=== PATIENT | female | born 1995 | race Caucasian/White ===

== ENCOUNTER 2017-03-30 13:28 | Emergency (ER) | payer SELFPAY ==
[~2017-03-30 13:28] MED LIST: PROT40TA PO; RISP1 PO; SERT100 PO
[2017-03-30 13:31] VITALS: BP 125/73; PULSE 66; RESP 20; TEMP 98.7; O2SAT 98
[2017-03-30] MEDS ORDERED: RISP1 PO (13:48)
[2017-03-30] MEDS ORDERED: XANA1TAB2 PO (13:48)
[2017-03-30] MEDS ORDERED: LURA20TA PO (13:48)
[2017-03-30] MEDS ORDERED: ZOLO100T PO (13:48)
[2017-03-30] MEDS ORDERED: LAMO25 PO (13:48)
--- NOTE | 2017-03-30 13:56 | PD ---
HPI Chief Complaint: Syncope/Near-Syncope Time Seen by Provider: 13:52 Travel History International Travel<30 days: No Contact w/Intl Traveler<30days: No Traveled to known affect area: No History of Present Illness HPI This 21-year-old female was at work today. She was working on a [employer] register. She started getting tunnel vision and hearing was muffled. She then woke up on the floor. She has had syncope in the past. She says she has had the symptoms in the past and always passed out. She does say that she has woken up on the floor home a couple of times. She is on multiple antipsychotics she is on Zoloft, Luvox, Risperdal, Xanax and what to do. She has been on the same medication for some time. She has had a 70 pound weight loss over the past year. He did not have any chest pain or palpitations. She says she feels well now. PFSH Past Medical History ADHD: No Bipolar Disorder: Yes Anxiety: Yes Depression: Yes Cancer: No Cardiovascular Problems: No Diabetes: No Endocrine: No Genitourinary: No Implanted Vascular Access Dvce: No Musculoskeletal: No Neurologic: No Psychiatric: Yes (BI POLAR, OCD, DEPRESSION) Reproductive: No Respiratory: No Migraines: No Seizures: No Thyroid Disease: No Tetanus Vaccination: Unknown Influenza Vaccination: No ?: Unknown LMP: NOW Past Surgical History Cardiac Surgery: No Social History Alcohol Use: No Tobacco Use: No Substance Use: No Allergies-Medications (Allergen,Severity, Reaction): Uncoded Allergies: POLLEN (Adverse Reaction, Severe, 10/16/13) Reported Meds & Prescriptions Reported Meds & Active Scripts Active Reported Lamictal (Lamotrigine) 25 Mg Tab 25 Mg PO DAILY Latuda (Lurasidone) 20 Mg Tab 10 Mg PO DAILY Xanax (Alprazolam) 1 Mg Tab 1 Mg PO Q6H PRN Risperdal (Risperidone) 1 Mg Tab 1 Mg PO DAILY Zoloft (Sertraline HCl) 100 Mg Tab 100 Mg PO DAILY Review of Systems General / Constitutional: No: Fever, Chills Eyes: No: Diploplia, Blurred Vision HENT: No: Headaches, Vertigo Cardiovascular: No: Chest Pain or Discomfort, Palpitations Respiratory: No: Cough, Shortness of Breath Gastrointestinal: No: Nausea, Vomiting Genitourinary: No: Frequency Musculoskeletal: No: Myalgias, Arthralgias Skin: No Rash Endocrine: No: Heat Intolerance, Cold Intolerance Hematologic/Lymphatic: No: Easy Bruising Physical Exam Narrative GENERAL: Well-developed female SKIN: Focused skin assessment warm/dry. HEAD: Atraumatic. Normocephalic. EYES: Pupils equal and round. No scleral icterus. No injection or drainage. ENT: No nasal bleeding or discharge. Mucous membranes pink and moist. NECK: Trachea midline. No JVD. CARDIOVASCULAR: Regular rate and rhythm. No murmur appreciated. RESPIRATORY: No accessory muscle use. Clear to auscultation. Breath sounds equal bilaterally. GASTROINTESTINAL: Abdomen soft, non-tender, nondistended. Hepatic and splenic margins not palpable. MUSCULOSKELETAL: No obvious deformities. No clubbing. No cyanosis. No edema. NEUROLOGICAL: Awake and alert. No obvious cranial nerve deficits. Motor grossly within normal limits. Normal speech. PSYCHIATRIC: Appropriate mood and affect; insight and judgment normal. Data Data Last Documented VS Vital Signs Date Time Temp Pulse Resp B/P (MAP) Pulse Ox O2 Delivery O2 Flow Rate FiO2 03/30/17 14:17 70 16 106/67 (80) 72 16 108/68 (81) 98 16 108/66 (80) 03/30/17 13:31 98.7 98 Orders Orders Electrocardiogram (03/30/17 13:52) Complete Blood Count With Diff (03/30/17 13:52) Basic Metabolic Panel (Bmp) (03/30/17 13:52) Orthostatic Vital Signs (03/30/17 13:52) Labs Laboratory Tests Test 03/30/17 14:20 03/30/17 15:05 Blood Urea Nitrogen 12 MG/DL Creatinine 0.74 MG/DL Random Glucose 86 MG/DL Calcium Level 9.0 MG/DL Sodium Level 138 MEQ/L Potassium Level 3.7 MEQ/L Chloride Level 108 MEQ/L Carbon Dioxide Level 19.9 MEQ/L Anion Gap 10 MEQ/L Estimat Glomerular Filtration Rate 99 ML/MIN White Blood Count 9.1 TH/MM3 Red Blood Count 4.74 MIL/MM3 Hemoglobin 13.2 GM/DL Hematocrit 39.5 % Mean Corpuscular Volume 83.4 FL Mean Corpuscular Hemoglobin 27.8 PG Mean Corpuscular Hemoglobin Concent 33.3 % Red Cell Distribution Width 12.4 % Platelet Count 145 TH/MM3 Mean Platelet Volume 10.3 FL Neutrophils (%) (Auto) 84.1 % Lymphocytes (%) (Auto) 9.1 % Monocytes (%) (Auto) 4.3 % Eosinophils (%) (Auto) 0.7 % Basophils (%) (Auto) 1.8 % Neutrophils # (Auto) 7.6 TH/MM3 Lymphocytes # (Auto) 0.8 TH/MM3 Monocytes # (Auto) 0.4 TH/MM3 Eosinophils # (Auto) 0.1 TH/MM3 Basophils # (Auto) 0.2 TH/MM3 CBC Comment DIFF FINAL Differential Comment MDM Medical Decision Making Medical Screen Exam Complete: Yes Emergency Medical Condition: Yes Medical Record Reviewed: Yes Differential Diagnosis Differential includes vasovagal syncope, adverse medication reaction Narrative Course EKG shows normal sinus rhythm. There are no significant orthostatic vital sign changes. Lab work is unremarkable. Patient is stable for discharge. This appears to be vasovagal syncope. I cautioned her to sit down if she feels symptoms coming. She is on a lot of psychiatric medications which may be able to be tapered as she is seems to be doing quite well on that basIs but I will leave that up to her psychiatrist Diagnosis Primary Impression: Vasovagal syncope Disposition: DISCHARGE HOME Condition: Stable Victor Hugo Montes MD Mar 30, 2017 13:56
[2017-03-30 14:17] VITALS: BP_SYST 106; BP_SYST 108; BP_DIAS 66; BP_DIAS 67; BP_DIAS 68; RESP 16
[2017-03-30 14:41] LABS: POTASSIUM 3.7 MEQ/L (3.5-5.1)
[2017-03-30 14:43] LABS: BICARBONATE 19.9 MEQ/L (21.0-32.0)
[2017-03-30 15:13] LABS: AUTOMATED NEUTROPHIL # 7.6 TH/MM3 (1.8-7.7); BASOPHIL # 0.2 TH/MM3 (0-0.2); BASOPHIL % 1.8 % (0.0-2.0); EOSINOPHIL # 0.1 TH/MM3 (0-0.4); EOSINOPHIL % 0.7 % (0.0-4.0); HEMATOCRIT 39.5 % (35.0-46.0); LYMPH % 9.1 % (9.0-44.0); LYMPHOCYTE # 0.8 TH/MM3 (1.0-4.8); MEAN CELL VOLUME 83.4 FL (80.0-100.0); MEAN CORPUSCULAR HEMOGLOBIN 27.8 PG (27.0-34.0); MEAN CORPUSCULAR HGB CONC 33.3 % (32.0-36.0); MONO % 4.3 % (0.0-8.0); NEUT % 84.1 % (16.0-70.0); PLATELET COUNT 145 TH/MM3 (150-450); RED BLOOD COUNT 4.74 MIL/MM3 (4.00-5.30); RED CELL DISTRIBUTION WIDTH 12.4 % (11.6-17.2); WHITE BLOOD COUNT 9.1 TH/MM3 (4.0-11.0)
[2017-03-30 15:14] LABS: HEMO FLAGS DIFF FINAL
--- NOTE | 2017-03-31 16:29 | EKG ---
Date Performed: 03/30/2017 Time Performed: 14:10:26 PTAGE: 21 years EKG: Sinus rhythm INCOMPLETE RIGHT BUNDLE BRANCH BLOCK BORDERLINE ECG Since PREVIOUS TRACING , no significant change noted PREVIOUS TRACIN06/07/2014 15.58 DOCTOR: Hal Henderson Interpretating Date/Time 03/31/2017 16:28:10
== END 2017-03-30 15:37 | disposition home or self-care (01) ==
LOC: PHEFT 13:28
DX: R55 Syncope and collapse (principal); R94.31 Abnormal electrocardiogram [ECG] [EKG]
CPT/HCPCS: 80048; 85025; 93005; 99284